=== PATIENT | male | born 1995 | race African-American/Black ===

== ENCOUNTER 2019-11-08 20:28 | Emergency (ER) | payer MEDICAID, OTHER ==
[~2019-11-08] VITALS: Ht 175.3 cm; Wt 73.0 kg
[2019-11-08] MEDS ORDERED: IBUPROFEN 600MG TABLET PO ONE (22:45)
[2019-11-09 00:08] VITALS: BP 132/80
== END 2019-11-09 00:09 | disposition home or self-care (01) ==
LOC: ER 20:28
DX: M25.531 Pain in right wrist (principal)
CPT/HCPCS: 29125; 73110; 99283